=== PATIENT | male | born 1960 | race Caucasian/White ===

== ENCOUNTER 2018-03-02 18:55 | Emergency (ER) | payer MEDICARE, OTHER ==
[2018-03-02 18:56] VITALS: BMI 44.6
[2018-03-02 19:10] VITALS: TEMP 98.6; O2SAT 96
--- NOTE | 2018-03-02 19:33 | C.PDOC ---
History Of Present Illness 57 year old male with PMHx of HTN and HLD presents to the ED complaining of cough, subjective dyspnea and fever for the last few days. Associated symptoms include rhinorrhea and sorethroat. He denies any headache or chest pain. He de nies any recent sick contacts. Time Seen by Provider: 03/02/18 19:04 Chief Complaint (Nursing): Shortness Of Breath History Per: Patient History/Exam Limitations: no limitations Onset/Duration Of Symptoms: Days Current Symptoms Are (Timing): Still Present Associated Symptoms: Fever, Other (Rhinorrhea, cough, sore throat ) Past Medical History Reviewed: Historical Data, Nursing Documentation, Vital Signs Vital Signs: Last Vital Signs Temp 98.6 F 03/02/18 19:00 Pulse 97 H 03/02/18 19:00 Resp 14 03/02/18 19:22 BP 131/86 03/02/18 19:00 Pulse Ox 96 03/02/18 19:00 - Medical History PMH: Arthritis, Asthma, CAD, Depression, HTN, Hypercholesterolemia, Peripheral Edema, Sleep Apnea Denies: Dementia, Chronic Kidney Disease Surgical History: Coronary Stent (2012 x2) Denies: Pacemaker - [facility] Procedures CORONAR ARTERIOGR-2 CATH (04/16/14) DRESSING TECHNIQUES TREATMENT USING ASSIST EQUIPMENT (07/06/16) EXERCISE TRMT MUSCULOSK LOW BACK/LE W AEROBIC EQUIP (07/06/16) GAIT TRAINING/AMBULAT TREATMENT USING ASSIST EQUIPMENT (07/06/16) GROOMING/PERSONAL HYGIENE TREATMENT USING ASSIST EQUIPMENT (07/06/16) INJECT/INFUSE PLATELET INHIBITOR (12/27/12) INSERTION OF TWO VASCULAR STENTS (12/27/12) INSRT OF DRUG-ELUTING CORON ARTERY STENTS(S) (12/27/12) LEFT HEART CARDIAC CATH (04/16/14) LT HEART ANGIOCARDIOGRAM (04/16/14) OCCUPATIONAL THERAPY (12/30/12) OTH & OPEN REPAIR DIRECT INGUINAL HERNIA W GRAFT OR PROSTH (10/24/13) PERCUTANEOUS TRANSLUMINAL CORONARY ANGIOPLASTY [PTCA] (12/27/12) PHYSICAL THERAPY NEC (12/30/12) PROCEDURE ON SINGLE VESSEL (12/27/12) TRANSFER TRAINING TREATMENT (07/06/16) Family History: States: No Known Family Hx - Social History Hx Tobacco Use: No Hx Alcohol Use: No Hx Substance Use: No - Immunization History Hx Tetanus Toxoid Vaccination: No Hx Influenza Vaccination: No Hx Pneumococcal Vaccination: No Review Of Systems Constitutional: Positive for: Fever (subjective) ENT: Positive for: Nose Discharge, Throat Pain Cardiovascular: Negative for: Chest Pain Respiratory: Positive for: Cough, Other (subjective dyspnea) Neurological: Negative for: Headache Physical Exam - Physical Exam Appears: Non-toxic, No Acute Distress Skin: Warm, Dry Head: Normacephalic Eye(s): bilateral: Normal Inspection Throat: Erythema Neck: Normal ROM Chest: Symmetrical Cardiovascular: Rhythm Regular Respiratory: Normal Breath Sounds, No Rales, No Rhonchi, No Wheezing Gastrointestinal/Abdominal: Soft, No Tenderness Extremity: Normal ROM Neurological/Psych: Oriented x3, Normal Speech Gait: Steady ED Course And Treatment - Laboratory Results Result Diagrams: 03/02/18 19:36 03/02/18 19:36 ECG: Interpreted By Me, Viewed By Me ECG Rhythm: Sinus Rhythm ECG Interpretation: No Changes From Prior Interpretation Of ECG: Specific ST changes in lateral lead Rate From EC O2 Sat by Pulse Oximetry: 96 (RA) Pulse Ox Interpretation: Normal - Radiology CXR: Interpreted by Me, Viewed By Me CXR Interpretation: Yes: No Acute Disease Medical Decision Making Medical Decision Making: viral disase vs pna Orders: - EKG - Labwork - Bloodwork - CXR pt reassesed o2 sat 99, in nad. cxr neg as read by me. labs neg. stable for dc. Disposition - Disposition Disposition: HOME/ ROUTINE Disposition Time: 21:00 Condition: STABLE Additional Instructions: follow up with your doctor/clinic. return to er with worsening symptoms or concerns. Instructions: Shortness of Breath (Dyspnea), Viral Syndrome (DC) Forms: [employer] (Mauritian) - Clinical Impression Clinical Impression: Dyspnea, Viral syndrome - Scribe Statement The provider has reviewed the documentation as recorded by the Scribe Elizabeth Waterman All medical record entries made by the Scribe were at my direction and personally dictated by me. I have reviewed the chart and agree that the record accurately reflects my personal performance of the history, physical exam, medical decision making, and the department course for this patient. I have also personally directed, reviewed, and agree with the discharge instructions and disposition.
[2018-03-02 19:42] LABS: BASO # 0.1 K/uL (0.0-0.2); BASO % 0.7 % (0.0-2.0); EOS # 0.3 K/uL (0.0-0.7); EOS % 2.9 % (0.0-4.0); HEMOGLOBIN 12.9 g/dL (12.0-18.0); LYMPH # 1.6 K/uL (1.0-4.3); LYMPH % 18.6 % (20.0-40.0); MEAN CELL VOLUME 86.3 fL (80.0-94.0); MEAN CORPUSCULAR HEMOGLOBIN 29.4 pg (27.0-31.0); MEAN CORPUSCULAR HGB CONC 34.1 g/dL (33.0-37.0); MEAN PLATELET VOLUME 8.6 fL (7.2-11.7); MONO # 0.7 K/uL (0.0-0.8); MONO % 8.4 % (0.0-10.0); NEUT # 6.1 K/uL (1.8-7.0); NEUT % 69.4 % (50.0-75.0); NRBC % 0.1 % (0.0-2.0); RBC 4.4 Mil/uL (4.40-5.90); RED CELL DISTRIBUTION WIDTH 13.3 % (11.5-14.5); WHITE BLOOD COUNT 8.8 K/uL (4.8-10.8)
[2018-03-02 19:52] LABS: INR 1.1
[2018-03-02 20:03] LABS: ALB/GLOB RATIO 1.2 (1.0-2.1); ALBUMIN 4.1 g/dL (3.5-5.0); ALT/SGPT 45 U/L (21-72); AST/SGOT 38 U/L (17-59); BLOOD UREA NITROGEN 19 mg/dL (9-20); CALCIUM 9.2 mg/dl (8.6-10.4); GFR NON-AFRICAN AMERICAN > 60
[2018-03-02 20:18] LABS: B-TYPE NATRIURETIC PEPTIDE < 11.1 pg/mL (0-900)
[2018-03-02 20:56] LABS: INFLUENZA A B NEGATIVE FOR FLU A/B (NEGATIVE)
[2018-03-02 21:13] VITALS: BP 113/89; PULSE 98; RESP 16
--- NOTE | 2018-03-03 08:49 | RAD ---
Date of service: 03/02/2018 PROCEDURE: CHEST RADIOGRAPH, 1 VIEW HISTORY: chest pain COMPARISON: Comparison chest 04/12/2017. FINDINGS: LUNGS: Clear. PLEURA: No pneumothorax or pleural fluid seen. CARDIOVASCULAR: Normal. OSSEOUS STRUCTURES: No significant abnormalities. VISUALIZED UPPER ABDOMEN: Normal. OTHER FINDINGS: None. IMPRESSION: No active disease.
--- NOTE | 2018-03-04 11:49 | CARD ---
APPROVED REPORT Date of service: 03/02/2018 EKG Measurement Heart [id number] <Conclusion> Sinus rhythm with occasional premature ventricular complexes T wave abnormality, consider inferolateral ischemia Abnormal ECG
== END 2018-03-02 21:12 | disposition home or self-care (01) ==
LOC: C.ER 18:55
DX: R06.00 Dyspnea, unspecified (principal); B34.9 Viral infection, unspecified; I25.10 Atherosclerotic heart disease of native coronary artery without angina pectoris; J45.909 Unspecified asthma, uncomplicated; I10 Essential (primary) hypertension; E78.00 Pure hypercholesterolemia, unspecified; Z95.5 Presence of coronary angioplasty implant and graft

== ENCOUNTER 2018-03-21 19:14 | Inpatient (IN) | payer MEDICARE, OTHER ==
[2018-03-21 19:14] VITALS: BMI 44.6
--- NOTE | 2018-03-21 19:54 | C.PDOC ---
History Of Present Illness 57 year old male presents to the ED c/o SOB, wheezing and productive cough with yellow sputum that has been worsening for the past 2 weeks. However patient reports symptoms worsened tonight. Patient denies fever, chills, CP, palpitat ions, rash, recent travel, sick contacts. Time Seen by Provider: 03/21/18 19:39 Chief Complaint (Nursing): Respiratory Distress History Per: Patient History/Exam Limitations: no limitations Onset/Duration Of Symptoms: Days Current Symptoms Are (Timing): Still Present Initiating Event: Upper Respiratory Illness Exacerbating Factor(s): Coughing Current Respiratory Medications: See Home Med List Severity: Moderate Pain Scale Rating Of: 4 Associated Symptoms: Productive Cough, Ankle/Leg Swelling Reports Recently: Seen In ED, Treated By A Physician, Hospitalized Recent travel outside of the [place]: No Additional History Per: Patient Past Medical History Reviewed: Historical Data, Nursing Documentation, Vital Signs Vital Signs: Last Vital Signs Temp 99.1 F 03/21/18 19:26 Pulse 102 H 03/21/18 19:26 Resp 22 03/21/18 19:26 BP 136/89 03/21/18 19:26 Pulse Ox 97 03/21/18 19:26 - Medical History PMH: Arthritis, Asthma, CAD, Depression, HTN, Hypercholesterolemia, Peripheral Edema, Sleep Apnea Denies: Dementia, Chronic Kidney Disease Surgical History: Coronary Stent (2012 x2) Denies: Pacemaker - [facility] Procedures CORONAR ARTERIOGR-2 CATH (04/16/14) DRESSING TECHNIQUES TREATMENT USING ASSIST EQUIPMENT (07/06/16) EXERCISE TRMT MUSCULOSK LOW BACK/LE W AEROBIC EQUIP (07/06/16) GAIT TRAINING/AMBULAT TREATMENT USING ASSIST EQUIPMENT (07/06/16) GROOMING/PERSONAL HYGIENE TREATMENT USING ASSIST EQUIPMENT (07/06/16) INJECT/INFUSE PLATELET INHIBITOR (12/27/12) INSERTION OF TWO VASCULAR STENTS (12/27/12) INSRT OF DRUG-ELUTING CORON ARTERY STENTS(S) (12/27/12) LEFT HEART CARDIAC CATH (04/16/14) LT HEART ANGIOCARDIOGRAM (04/16/14) OCCUPATIONAL THERAPY (12/30/12) OTH & OPEN REPAIR DIRECT INGUINAL HERNIA W GRAFT OR PROSTH (10/24/13) PERCUTANEOUS TRANSLUMINAL CORONARY ANGIOPLASTY [PTCA] (12/27/12) PHYSICAL THERAPY NEC (12/30/12) PROCEDURE ON SINGLE VESSEL (12/27/12) TRANSFER TRAINING TREATMENT (07/06/16) Family History: States: Unknown Family Hx - Social History Hx Tobacco Use: No Hx Alcohol Use: No Hx Substance Use: No - Immunization History Hx Tetanus Toxoid Vaccination: No Hx Influenza Vaccination: No Hx Pneumococcal Vaccination: No Review Of Systems Constitutional: Negative for: Fever, Chills Eyes: Positive for: Other (legally blind) ENT: Negative for: Nose Discharge, Nose Congestion, Throat Pain Cardiovascular: Negative for: Chest Pain, Palpitations Respiratory: Positive for: Cough, Shortness of Breath, Sputum Gastrointestinal: Negative for: Nausea, Vomiting Genitourinary: Negative for: Dysuria Musculoskeletal: Negative for: Back Pain Skin: Negative for: Rash Neurological: Negative for: Confusion Psych: Negative for: Anxiety Physical Exam - Physical Exam Appears: Non-toxic, No Acute Distress Skin: Warm, Dry Head: Normacephalic Eye(s): bilateral: Other (blind in right eye, decreased vision on left eye) Oral Mucosa: Moist Neck: Supple Chest: Symmetrical Cardiovascular: Rhythm Regular Respiratory: Decreased Breath Sounds, Rales (at the bases), No Rhonchi, Wheezing (diffuse) Gastrointestinal/Abdominal: Soft, No Tenderness, No Guarding, No Rebound Back: Normal Inspection Extremity: Pedal Edema (bilateral pitting) Extremity: Bilateral: Atraumatic, Normal Color And Temperature, Normal ROM Neurological/Psych: Oriented x3, Normal Speech, Normal Cognition Gait: Unsteady ED Course And Treatment - Laboratory Results Result Diagrams: 03/21/18 20:25 03/21/18 20:25 ECG: Interpreted By Me, Viewed By Me ECG Rhythm: Sinus Rhythm, Nonspecific Changes O2 Sat by Pulse Oximetry: 97 (ON RA) Pulse Ox Interpretation: Normal Progress Note: Plan: - ABG. - EKG. - Labs. - CXR. - Duoneb. - Lasix 20 mg IVP. - Solumderol 125 mg IVP. - Influenza A B. - UA Disposition Discussed With : Giovani Brink Comment: accepted the pt on his service and took over the care at 10:59PM Doctor Will See Patient In The: Hospital Counseled Patient/Family Regarding: Studies Performed, Diagnosis - Disposition Disposition: HOSPITALIZED Disposition Time: 19:54 Condition: FAIR Forms: [employer] (Dominican) - POA Present On Arrival: Poor Glycemic Control - Clinical Impression Clinical Impression: Exacerbation of asthma, Unstable gait, Dyspnea - Scribe Statement The provider has reviewed the documentation as recorded by the Scribe Jamaal Hutson All medical record entries made by the Scribe were at my direction and personally dictated by me. I have reviewed the chart and agree that the record accurately reflects my personal performance of the history, physical exam, medical decision making, and the department course for this patient. I have also personally directed, reviewed, and agree with the discharge instructions and disposition. Decision To Admit - Pt Status Changed To: Hospital Disposition Of: Observation - . Bed Request Type: Regular Admitting Physician: Giovani Brink Patient Diagnosis: Exacerbation of asthma, Unstable gait, Dyspnea
[2018-03-21] MEDS: Albuterol-Ipratrop 3 mg / 0.5 (3 ml) UD IH SCH ×3 (20:00→20:30)
[2018-03-21] MEDS ORDERED: Albuterol-Ipratrop 3 mg / 0.5 (3 ml) UD ONE (20:11)
[2018-03-21 20:32] LABS: BASO % 0.4 % (0.0-2.0); EOS # 0.2 K/uL (0.0-0.7); HEMOGLOBIN 12.3 g/dL (12.0-18.0); LYMPH # 1.7 K/uL (1.0-4.3); MEAN CELL VOLUME 85.9 fL (80.0-94.0); MEAN CORPUSCULAR HEMOGLOBIN 29.2 pg (27.0-31.0); MEAN PLATELET VOLUME 8.5 fL (7.2-11.7); MONO # 0.6 K/uL (0.0-0.8); MONO % 7.4 % (0.0-10.0); NEUT # 5.2 K/uL (1.8-7.0); NEUT % 68.2 % (50.0-75.0); NRBC % 0.2 % (0.0-2.0); RBC 4.2 Mil/uL (4.40-5.90); WHITE BLOOD COUNT 7.6 K/uL (4.8-10.8)
[2018-03-21 20:48] LABS: INR 1.2; PROTHROMBIN TIME 13.2 SECONDS (9.7-12.2)
[2018-03-21 21:02] LABS: ALB/GLOB RATIO 1.1 (1.0-2.1); ALBUMIN 3.8 g/dL (3.5-5.0); ALT/SGPT 41 U/L (21-72); AST/SGOT 33 U/L (17-59); BLOOD UREA NITROGEN 18 mg/dL (9-20); CALCIUM 9.1 mg/dl (8.6-10.4); GFR NON-AFRICAN AMERICAN > 60
[2018-03-21 21:04] LABS: ABG ALLEN TEST YES; ARTERIAL BLOOD GAS HCO3 27.3 mmol/L (21-28); ARTERIAL BLOOD GAS O2 SAT 96.5 % (95-98); ARTERIAL BLOOD GAS PCO2 38 mm/Hg (35-45); ARTERIAL BLOOD GAS PH 7.46 (7.35-7.45); ARTERIAL BLOOD GAS PO2 68 mm/Hg (80-100); ARTERIAL BLOOD GAS TCO2 28.2 mmol/L (22-28)
[2018-03-21 21:14] LABS: B-TYPE NATRIURETIC PEPTIDE 13.2 pg/mL (0-900)
[2018-03-21 22:02] LABS: URINE BILIRUBIN NEGATIVE (NEGATIVE); URINE BLOOD NEGATIVE (NEGATIVE); URINE CLARITY Clear (Clear); URINE COLOR Colorless (YELLOW); URINE GLUCOSE (UA) NORMAL (Normal); URINE LEUKOCYTE ESTERASE NEG Leu/uL (Negative); URINE PROTEIN NEGATIVE (NEGATIVE); URINE UROBILINOGEN NORMAL mg/dL (0.2-1.0)
[2018-03-22] MEDS ORDERED: Albuterol-Ipratrop 3 mg / 0.5 (3 ml) UD ONE (03:33)
[2018-03-22] MEDS: Albuterol-Ipratrop 3 mg / 0.5 (3 ml) UD INH SCH ×4 (04:00→16:26)
--- NOTE | 2018-03-22 09:44 | RAD ---
Date of service: 03/21/2018 PROCEDURE: CHEST RADIOGRAPH, 1 VIEW HISTORY: Shortness of breath COMPARISON: None available. FINDINGS: LUNGS: Mild venous congestion. Right hilar prominence. PLEURA: No pneumothorax or pleural fluid seen. CARDIOVASCULAR: Mild cardiomegaly. OSSEOUS STRUCTURES: No significant abnormalities. VISUALIZED UPPER ABDOMEN: Normal. OTHER FINDINGS: None. IMPRESSION: Mild venous congestion. Right hilar prominence.
[2018-03-22] MEDS: Enoxaparin 40 mg Syringe SC SCH (09:59)
[2018-03-22 10:03] VITALS: RESP 20
[2018-03-22 11:21] LABS: HEMOGLOBIN 12.8 g/dL (12.0-18.0); LYMPH # 0.5 K/uL (1.0-4.3); LYMPH % 5.3 % (20.0-40.0); MEAN CORPUSCULAR HEMOGLOBIN 29.8 pg (27.0-31.0); MEAN CORPUSCULAR HGB CONC 34.7 g/dL (33.0-37.0); MEAN PLATELET VOLUME 8.9 fL (7.2-11.7); MONO # 0.1 K/uL (0.0-0.8); MONO % 1.6 % (0.0-10.0); NEUT # 8.5 K/uL (1.8-7.0); NEUT % 93.1 % (50.0-75.0); NRBC % 0.1 % (0.0-2.0); PLATELET COUNT 208 K/uL (130-400); RBC 4.31 Mil/uL (4.40-5.90); RED CELL DISTRIBUTION WIDTH 13.3 % (11.5-14.5); WHITE BLOOD COUNT 9.1 K/uL (4.8-10.8)
[2018-03-22 11:30] LABS: URIC ACID 6.3 mg/dL (3.5-8.5)
[2018-03-22 12:11] LABS: LYMPHOCYTE 1 % (20-40); MONOCYTE 4 % (0-10); NEUTROPHIL 95 % (50-75); TOTAL CELLS COUNTED 100
[2018-03-22 12:12] LABS: PLATELET ESTIMATE NORMAL (NORMAL)
[2018-03-22] MEDS: Azithromycin 500 MG in Sodium Chloride 0.9% 250 ML IVPB SCH (19:01)
--- NOTE | 2018-03-22 20:23 | CARD ---
APPROVED REPORT Date of service: 03/21/2018 EKG Measurement Heart [id number] <Conclusion> Sinus tachycardia Otherwise normal ECG
--- NOTE | 2018-03-22 22:05 | CP.PCM.HP ---
History of Present Illness - History of Present Illness History of Present Illness: 57-year-old legally blind male complaining of sore throat, wheezing and chest discomfor for the past 3 days.. Patient's symptoms intensified today and he had recurrent palpitations. patient comes to the ER for evaluation and was a dvised admission. Present on Admission - Present on Admission Any Indicators Present on Admission: No History of DVT/PE: No History of Uncontrolled Diabetes: No Urinary Catheter: No Decubitus Ulcer Present: No History Surgical Site Infection Following: None Review of Systems - Constitutional Constitutional: Fatigue, Malaise - EENT Eyes: Blind Spots Nose/Mouth/Throat: Sore Throat - Cardiovascular Cardiovascular: Palpitations - Respiratory Respiratory: Wheezing - Integumentary Integumentary: Dry Skin - Neurological Neurological: Numbness, Headaches - Endocrine Endocrine: Fatigue Past Patient History - Infectious Disease Hx of Infectious Diseases: None - Tetanus Immunizations Tetanus Immunization: Unknown, >10 years Ago - Past Medical History & Family History Past Medical History?: Yes - Past Social History Smoking Status: Never Smoked Chewing Tobacco Use: No Cigar Use: No Alcohol: None Drugs: Denies Home Situation {Lives}: Alone - CARDIAC Hx Cardiac Disorders: Yes Hx Cardia Arrhythmia: Yes Hx Circulatory Problems: Yes Hx Hypercholesterolemia: Yes Hx Hypertension: Yes Hx Pacemaker: No Hx Peripheral Edema: Yes - PULMONARY Hx Asthma: Yes Hx Sleep Apnea: Yes - NEUROLOGICAL Hx Dementia: No Hx Dizziness: Yes Hx Migraine: Yes - HEENT Hx HEENT Problems: Yes Hx Blind: Yes (legally blind) Hx Cataracts: Yes - RENAL Hx Chronic Kidney Disease: No - ENDOCRINE/METABOLIC Hx Endocrine Disorders: No - HEMATOLOGICAL/ONCOLOGICAL Hx Blood Disorders: No Hx Blood Transfusions: No Hx Blood Transfusion Reaction: No - INTEGUMENTARY Hx Dermatological Problems: No - MUSCULOSKELETAL/RHEUMATOLOGICAL Hx Arthritis: Yes - GASTROINTESTINAL Hx Gastrointestinal Disorders: No Hx Gastroesophageal Reflux: Yes - GENITOURINARY/GYNECOLOGICAL Hx Genitourinary Disorders: No - PSYCHIATRIC Hx Depression: Yes Hx Substance Use: No - SURGICAL HISTORY Hx Coronary Stent: Yes (2012 x2) - ANESTHESIA Hx Anesthesia: Yes Hx Anesthesia Reactions: No Hx Malignant Hyperthermia: No Meds Allergies/Adverse Reactions: Allergies Allergy/AdvReac Type Severity Reaction Status Date / Time No Known Allergies Allergy Verified 03/21/18 19:29 Physical Exam - Head Exam Head Exam: ATRAUMATIC - ENT Exam ENT Exam: Mucous Membranes Dry - Neck Exam Neck exam: Positive for: Normal Inspection - Respiratory Exam Respiratory Exam: Wheezes - Cardiovascular Exam Cardiovascular Exam: Tachycardia - GI/Abdominal Exam GI & Abdominal Exam: Hyperactive Bowel Sounds - Rectal Exam Rectal Exam: Deferred - Exam Exam: NORMAL INSPECTION - Extremities Exam Extremities exam: Positive for: joint swelling - Back Exam Back exam: NORMAL INSPECTION - Neurological Exam Neurological exam: Oriented x3 - Psychiatric Exam Psychiatric exam: Depressed Results - Vital Signs Recent Vital Signs: Last Vital Signs Temp 97.4 F L 03/22/18 16:00 Pulse 117 H 03/22/18 16:00 Resp 20 03/22/18 16:00 BP 110/61 03/22/18 17:23 Pulse Ox 96 03/22/18 16:00 - Labs Result Diagrams: 03/22/18 11:11 03/22/18 11:11 Labs: Laboratory Results - last 24 hr 03/21/18 03/22/18 03/22/18 21:50 11:11 11:11 WBC 9.1 RBC 4.31 L Hgb 12.8 Hct 37.0 MCV 86.0 MCH 29.8 MCHC 34.7 RDW 13.3 Plt Count 208 MPV 8.9 Neut % (Auto) 93.1 H Lymph % (Auto) 5.3 L [place] % (Auto) 1.6 Eos % (Auto) 0.0 Baso % (Auto) 0.0 Neut # (Auto) 8.5 H Lymph # (Auto) 0.5 L [place] # (Auto) 0.1 Eos # (Auto) 0.0 Baso # (Auto) 0.0 Neutrophils % (Manual) 95 H Lymphocytes % (Manual) 1 L Monocytes % (Manual) 4 Platelet Estimate Normal RBC Morphology Normal Sodium 139 Potassium 4.7 Chloride 103 Carbon Dioxide 22 BUN 18 Uric Acid 6.3 Urine Color Colorless Urine Clarity Clear Urine pH 6.0 Ur Specific [place] 1.004 Urine Protein Negative Urine Glucose (UA) Normal Urine Ketones Negative Urine Blood Negative Urine Nitrate Negative Urine Bilirubin Negative Urine Urobilinogen Normal Ur Leukocyte Esterase Neg Urine WBC (Auto) < 1 Urine RBC (Auto) < 1 Assessment & Plan (1) Cardiac arrhythmia Status: Acute (2) Exacerbation of asthma Status: Acute (3) Degenerative joint disease Status: Acute (4) Viral syndrome Status: Acute
--- NOTE | 2018-03-22 22:17 | CON ---
DATE: 03/22/2018 HISTORY OF PRESENT ILLNESS: This is a 57-year-old male, a nonsmoker with a history of hypertension, coronary artery disease with placement of two stents in 2012, history of asthma, sleep apnea, depression, hypercholesterolemia, and arthritis, now admitted with increasing dyspnea especially on exertion, cough with scanty mucoid to yellow sputum with no fever, but occasional chills. No sweating. He sleeps poorly and feels drowsy during the day. There has been no vomiting or hemoptysis. No seizures, syncope or falls. SOCIAL HISTORY: He is a nonsmoker, does not drink alcohol. ALLERGIES: HE IS NOT ALLERGIC TO ANY MEDICATIONS. PAST MEDICAL HISTORY: As noted above with coronary artery disease, stent placement, hypertension, CHF, arthritis, and sleep apnea. REVIEW OF SYSTEMS: Systemic review revealed: NEUROLOGIC: No seizures, no falls. RESPIRATORY: Shortness of breath, dyspnea. CARDIOVASCULAR: Coronary artery disease. GASTROINTESTINAL: No vomiting. No GI disturbance. GENITOURINARY: No urinary complaints. MUSCULOSKELETAL: He has no arthritic pains. PHYSICAL EXAMINATION: GENERAL: He is alert, oriented, and obese. VITAL SIGNS: Afebrile with a blood pressure of 130/72, pulse 87, hemoglobin-oxygen saturation of 95%. HEENT: Appears unremarkable. NECK: No thyromegaly. No lymphadenopathy. HEART: Regular with no gallop rhythm. LUNGS: Diminished breath sounds over the lung christensen with rhonchi and wheeze present. ABDOMEN: Soft and protuberant. EXTREMITIES: There is bilateral leg edema with pitting. Deep tendon reflexes are little sluggish. Motor power fair. LABORATORY DATA: His white count is 9100, hemoglobin 12.8, platelet count 2800. His arterial blood gas on FiO2 of 30% shows pH of 7.46, pCO2 of 38, and pO2 of 68 with bicarb of 27, hemoglobin oxygen saturation of 98%. Sodium 143, potassium 4.4, chloride 104, BUN 18, creatinine 1.1. Troponin less than 0.012. Urinalysis is unremarkable. His chest x-ray shows elevation of right hemidiaphragm with possible atelectasis with basal plate like atelectasis over the bases, otherwise lung christensen are clear, and the heart is enlarged with bilateral basal rales. IMPRESSION: Respiratory insufficiency, acute exacerbation of chronic obstructive pulmonary disease, hypertension and coronary artery disease with congestive heart failure, bronchitis, arthritis, hypercholesterolemia, sleep apnea. PLAN: To continue with the current medications including bronchodilators, vasodilators, oxygen, and Plavix. Since the patient is on Plavix, he is not given Lovenox. He has leg swelling, so leg compression is not comfortable or effective. Plan as indicated with current therapy, and we will follow with his chest x-ray and further tests. We will give nightly BiPAP therapy as indicated. Jerry Arciniega MD
[2018-03-23] MEDS: Enoxaparin 40 mg Syringe SC SCH (10:06)
[2018-03-23] MEDS: guaiFENesin 100 mg/5 ml Syrup UD PO SCH ×2 (15:16→21:26)
[2018-03-23] MEDS: Albuterol 0.083% Inhal Sol (2.5 mg/3 mL) UD INH SCH ×2 (16:05→19:38)
[2018-03-23] MEDS: Azithromycin 500 MG in Sodium Chloride 0.9% 250 ML IVPB SCH (19:51)
[2018-03-23] MEDS: MethylPREDNISolone 40 mg Vial IV SCH (21:26)
--- NOTE | 2018-03-23 22:28 | CP.PCM.PN ---
Subjective - Date & Time of Evaluation Date of Evaluation: 03/23/18 Time of Evaluation: 19:20 - Subjective Subjective: patient still has severe cough. chest congestion persists. He has had less palpitations today. Will continue present medications and supportive measures. Objective - Vital Signs/Intake and Output Vital Signs (last 24 hours): Temp Pulse Resp BP Pulse Ox 98.1 F 95 H 20 106/75 99 03/23/18 16:00 03/23/18 16:00 03/23/18 16:00 03/23/18 17:31 03/23/18 16:00 - Medications Medications: Current Medications Albuterol Sulfate (Albuterol 0.083% Inhal [place] (2.5 Mg/3 Ml) Ud) 2.5 mg INH RQ4 [facility] Last Admin: 03/23/18 19:38 Dose: 2.5 mg Aspirin (Ecotrin) 81 mg PO DAILY [facility] Last Admin: 03/23/18 10:06 Dose: 81 mg Clopidogrel Bisulfate (Plavix) 75 mg PO DAILY [facility] Last Admin: 03/23/18 10:10 Dose: 75 mg Enalapril Maleate (Vasotec) 20 mg PO DAILY [facility] Last Admin: 03/23/18 10:06 Dose: 20 mg Enoxaparin Sodium (Lovenox) 40 mg SC DAILY [facility] Last Admin: 03/23/18 10:06 Dose: 40 mg Furosemide (Lasix) 40 mg PO DAILY [facility] Guaifenesin (Robitussin) 100 mg PO Q12 [facility] Last Admin: 03/23/18 21:26 Dose: 100 mg Azithromycin 500 mg/ Sodium (Chloride) 250 mls @ 167 mls/hr IVPB Q24H [facility]; Protocol Stop: 03/27/18 19:01 Last Admin: 03/23/18 19:51 Dose: 167 mls/hr Meclizine HCl (Antivert) 25 mg PO BID [facility] Last Admin: 03/23/18 17:31 Dose: 25 mg Methylprednisolone (Solu-Medrol) 20 mg IV Q12 [facility] Last Admin: 03/23/18 21:26 Dose: 20 mg Metoprolol Tartrate (Lopressor) 25 mg PO BID [facility] Last Admin: 03/23/18 17:31 Dose: 25 mg Montelukast Sodium (Singulair) 10 mg PO HS [facility] Last Admin: 03/23/18 21:26 Dose: 10 mg Rosuvastatin Calcium (Crestor) 20 mg PO HS [facility] Last Admin: 03/23/18 21:26 Dose: 20 mg - Labs Labs: 03/22/18 11:11 03/22/18 11:11 PT 13.2 SECONDS (9.7-12.2) H 03/21/18 20:25 INR 1.2 03/21/18 20:25 APTT 31 SECONDS (21-34) 03/21/18 20:25 - Constitutional Appears: Chronically Ill - Head Exam Head Exam: NORMOCEPHALIC - Eye Exam Eye Exam: Normal appearance Pupil Exam: NORMAL ACCOMODATION - ENT Exam ENT Exam: Mucous Membranes Dry - Neck Exam Neck Exam: Normal Inspection - Respiratory Exam Respiratory Exam: Wheezes - Cardiovascular Exam Cardiovascular Exam: REGULAR RHYTHM - GI/Abdominal Exam GI & Abdominal Exam: Normal Bowel Sounds - Rectal Exam Rectal Exam: Deferred - Exam Exam: NORMAL INSPECTION - Extremities Exam Extremities Exam: Joint Swelling, Pedal Edema - Back Exam Back Exam: NORMAL INSPECTION - Neurological Exam Neurological Exam: Oriented x3 - Psychiatric Exam Psychiatric exam: Depressed - Skin Skin Exam: Dry Assessment and Plan (1) Cardiac arrhythmia Status: Acute (2) Exacerbation of asthma Status: Acute (3) Degenerative joint disease Status: Acute (4) Viral syndrome Status: Acute
[2018-03-24] MEDS: Albuterol 0.083% Inhal Sol (2.5 mg/3 mL) UD INH SCH ×6 (00:52→19:32)
--- NOTE | 2018-03-24 07:24 | PN ---
DATE: 03/23/2018 SUBJECTIVE: The patient is alert and oriented. He is afebrile. He is in bed. PHYSICAL EXAMINATION: VITAL SIGNS: Blood pressure is 110/70, pulse 83, respiration 20. Hemoglobin oxygen saturation is 96%. HEART: Regular. No gallop rhythm. LUNGS: Diminished breath sounds at the lung bases. Rhonchi decreased. ABDOMEN: Soft. EXTREMITIES: Leg edema is less severe. He still cough. LABORATORY DATA: His white count is 9100, hemoglobin 12.8, platelet count 208,000. Sodium 139, potassium 4.7, chloride 103, carbon dioxide 22, BUN 18. IMPRESSION: Respiratory insufficiency, bronchitis, hypertensive cardiovascular disease with pulmonary vascular congestion, sleep apnea, obesity, depression, and raised blood sugar. PLAN: To continue with the current medications including bronchodilators, cough medicine, oxygen, BiPAP therapy and antibiotics. Jerry Arciniega MD
[2018-03-24] MEDS: guaiFENesin 100 mg/5 ml Syrup UD PO SCH ×2 (09:52→21:26)
[2018-03-24] MEDS: Enoxaparin 40 mg Syringe SC SCH (09:58)
[2018-03-24] MEDS: MethylPREDNISolone 40 mg Vial IV SCH ×2 (09:58→21:26)
[2018-03-24] MEDS: Azithromycin 500 MG in Sodium Chloride 0.9% 250 ML IVPB SCH (19:27)
--- NOTE | 2018-03-24 22:25 | CP.PCM.PN ---
Subjective - Date & Time of Evaluation Date of Evaluation: 03/24/18 Time of Evaluation: 19:05 - Subjective Subjective: patient is still coughing. patient claims to have shortness of breath if he lays flat in the bed. He is using 2 pillows in order to stay elevated. Chest x-ray ordere for the morning. Objective - Vital Signs/Intake and Output Vital Signs (last 24 hours): Temp Pulse Resp BP Pulse Ox 98 F 89 20 105/70 96 03/24/18 16:00 03/24/18 16:00 03/24/18 16:00 03/24/18 17:22 03/24/18 16:00 - Medications Medications: Current Medications Albuterol Sulfate (Albuterol 0.083% Inhal Patria (2.5 Mg/3 Ml) Ud) 2.5 mg INH RQ4 [facility] Last Admin: 03/24/18 19:32 Dose: 2.5 mg Aspirin (Ecotrin) 81 mg PO DAILY [facility] Last Admin: 03/24/18 09:57 Dose: 81 mg Clopidogrel Bisulfate (Plavix) 75 mg PO DAILY [facility] Last Admin: 03/24/18 09:57 Dose: 75 mg Enalapril Maleate (Vasotec) 20 mg PO DAILY [facility] Last Admin: 03/24/18 09:57 Dose: 20 mg Enoxaparin Sodium (Lovenox) 40 mg SC DAILY [facility] Last Admin: 03/24/18 09:58 Dose: 40 mg Furosemide (Lasix) 40 mg PO DAILY [facility] Last Admin: 03/24/18 10:00 Dose: 40 mg Guaifenesin (Robitussin) 100 mg PO Q12 [facility] Last Admin: 03/24/18 21:26 Dose: 100 mg Azithromycin 500 mg/ Sodium (Chloride) 250 mls @ 167 mls/hr IVPB Q24H [facility]; Protocol Stop: 03/27/18 19:01 Last Admin: 03/24/18 19:27 Dose: 167 mls/hr Meclizine HCl (Antivert) 25 mg PO BID [facility] Last Admin: 03/24/18 17:22 Dose: 25 mg Methylprednisolone (Solu-Medrol) 20 mg IV Q12 [facility] Last Admin: 03/24/18 21:26 Dose: 20 mg Metoprolol Tartrate (Lopressor) 25 mg PO BID [facility] Last Admin: 10/18/18 17:22 Dose: 25 mg Montelukast Sodium (Singulair) 10 mg PO HS [facility] Last Admin: 03/24/18 21:26 Dose: 10 mg Rosuvastatin Calcium (Crestor) 20 mg PO HS [facility] Last Admin: 03/24/18 21:26 Dose: 20 mg - Labs Labs: 03/22/18 11:11 03/22/18 11:11 PT 13.2 SECONDS (9.7-12.2) H 03/21/18 20:25 INR 1.2 03/21/18 20:25 APTT 31 SECONDS (21-34) 03/21/18 20:25 - Constitutional Appears: Chronically Ill - Head Exam Head Exam: NORMOCEPHALIC - Eye Exam Eye Exam: Normal appearance Pupil Exam: NORMAL ACCOMODATION - ENT Exam ENT Exam: Mucous Membranes Dry - Neck Exam Neck Exam: Normal Inspection - Respiratory Exam Respiratory Exam: Decreased Breath Sounds - Cardiovascular Exam Cardiovascular Exam: REGULAR RHYTHM - GI/Abdominal Exam GI & Abdominal Exam: Normal Bowel Sounds - Rectal Exam Rectal Exam: Deferred - Exam Exam: NORMAL INSPECTION - Extremities Exam Extremities Exam: Joint Swelling - Back Exam Back Exam: NORMAL INSPECTION - Neurological Exam Neurological Exam: Oriented x3 - Psychiatric Exam Psychiatric exam: Depressed - Skin Skin Exam: Dry Assessment and Plan (1) Cardiac arrhythmia Status: Acute (2) Exacerbation of asthma Status: Acute (3) Degenerative joint disease Status: Acute (4) Viral syndrome Status: Acute
[2018-03-25] MEDS: Albuterol 0.083% Inhal Sol (2.5 mg/3 mL) UD INH SCH ×7 (00:18→23:57)
[2018-03-25] MEDS: MethylPREDNISolone 40 mg Vial IV SCH (09:27)
[2018-03-25] MEDS: guaiFENesin 100 mg/5 ml Syrup UD PO SCH (09:27)
[2018-03-25] MEDS: Enoxaparin 40 mg Syringe SC SCH (09:28)
--- NOTE | 2018-03-25 10:40 | PN ---
DATE: 03/24/2018 SUBJECTIVE: The patient is in bed, lethargic. PHYSICAL EXAMINATION: VITAL SIGNS: Afebrile. Blood pressure stable 132/82, pulse 62, respirations 20, hemoglobin-oxygen saturation of 96%. HEART: Regular. No gallop rhythm. LUNGS: Diminished breath sounds over the lung bases. Rhonchi decreased. ABDOMEN: Soft. EXTREMITIES: Legs, edema is decreasing. LABORATORY DATA: His white count is 5700, hemoglobin 11.4, platelet count 185,000. Sodium is 144, potassium 4.7, chloride 102, BUN 14, creatinine 0.7, glucose 112. IMPRESSION: Respiratory insufficiency, diabetes mellitus, hypertensive cardiovascular disease, congestive heart failure, exacerbation of chronic obstructive pulmonary disease and sepsis, sleep apnea, arthritis. PLAN: To continue with current management including bronchodilator, BiPAP therapy, oxygen and antibiotics as ordered by Infectious Disease. Jerry Arciniega MD
[2018-03-25 11:35] LABS: BASO % 0.1 % (0.0-2.0); EOS % 0.1 % (0.0-4.0); HEMOGLOBIN 13.3 g/dL (12.0-18.0); LYMPH # 1.4 K/uL (1.0-4.3); LYMPH % 10.7 % (20.0-40.0); MEAN CELL VOLUME 86.4 fL (80.0-94.0); MEAN CORPUSCULAR HEMOGLOBIN 28.9 pg (27.0-31.0); MEAN CORPUSCULAR HGB CONC 33.4 g/dL (33.0-37.0); MEAN PLATELET VOLUME 8.5 fL (7.2-11.7); MONO # 0.5 K/uL (0.0-0.8); MONO % 3.5 % (0.0-10.0); NEUT # 11.5 K/uL (1.8-7.0); NEUT % 85.6 % (50.0-75.0); RBC 4.6 Mil/uL (4.40-5.90); RED CELL DISTRIBUTION WIDTH 13.1 % (11.5-14.5); WHITE BLOOD COUNT 13.4 K/uL (4.8-10.8)
[2018-03-25 11:53] LABS: ALB/GLOB RATIO 1.1 (1.0-2.1); ALBUMIN 4.2 g/dL (3.5-5.0); ALT/SGPT 33 U/L (21-72); AST/SGOT 24 U/L (17-59); BLOOD UREA NITROGEN 25 mg/dL (9-20); CALCIUM 9.5 mg/dl (8.6-10.4); GFR NON-AFRICAN AMERICAN > 60
[2018-03-25] MEDS: guaiFENesin DM 200 mg-20 mg/10 ml UD PO SCH ×2 (14:55→21:54)
[2018-03-25] MEDS: Azithromycin 500 MG in Sodium Chloride 0.9% 250 ML IVPB SCH (18:02)
--- NOTE | 2018-03-25 19:33 | PN ---
DATE: 03/25/2018 SUBJECTIVE: The patient is alert and oriented, afebrile. PHYSICAL EXAMINATION: GENERAL: In no acute distress. VITAL SIGNS: His blood pressure is 130/94 and pulse 98. HEART: Regular. No gallop rhythm. LUNGS: Revealed diminished breath sounds in the lung bases, rhonchi scattered. ABDOMEN: Soft. EXTREMITIES: Legs, edema decreasing. LABORATORY DATA: His white count 13,400, hemoglobin 13.3, platelet 283,000. Serum sodium 141, potassium 4.7, BUN 25, and creatinine 0.9. IMPRESSION: Respiratory insufficiency, acute exacerbation of chronic obstructive pulmonary disease, sleep apnea, obesity, hypertensive congestive heart failure, and obesity-hypoventilation syndrome. PLAN: To continue with the current medications. The patient does not want to have BiPAP therapy tonight. He continues to be on bronchodilators, antitussives and vasodilators, and continue with the current measures. Jerry Arciniega MD
--- NOTE | 2018-03-25 22:34 | CP.PCM.PN ---
Subjective - Date & Time of Evaluation Date of Evaluation: 03/25/18 Time of Evaluation: 19:35 - Subjective Subjective: patient less congested today. He still has residual cough but denies any chest pain. lower extremities are still swollen. WBCs 13,600 and a BUN is 25. Continue antibiotic therapy. Objective - Vital Signs/Intake and Output Vital Signs (last 24 hours): Temp Pulse Resp BP Pulse Ox 98.0 F 90 20 135/80 98 03/25/18 15:00 03/25/18 15:00 03/25/18 15:00 03/25/18 18:03 03/25/18 15:00 Intake and Output: 03/25/18 03/26/18 18:59 06:59 Output Total 1200 Balance -1200 - Medications Medications: Current Medications Albuterol Sulfate (Albuterol 0.083% Inhal Patria (2.5 Mg/3 Ml) Ud) 2.5 mg INH RQ4 [facility] Last Admin: 03/25/18 20:22 Dose: 2.5 mg Aspirin (Ecotrin) 81 mg PO DAILY [facility] Last Admin: 03/25/18 09:27 Dose: 81 mg Clopidogrel Bisulfate (Plavix) 75 mg PO DAILY [facility] Last Admin: 03/25/18 09:26 Dose: 75 mg Enalapril Maleate (Vasotec) 20 mg PO DAILY [facility] Last Admin: 03/25/18 09:27 Dose: 20 mg Enoxaparin Sodium (Lovenox) 40 mg SC DAILY [facility] Last Admin: 03/25/18 09:28 Dose: 40 mg Furosemide (Lasix) 40 mg PO DAILY [facility] Last Admin: 03/25/18 10:23 Dose: 40 mg Guaifenesin/Dextromethorphan (Robitussin Dm) 10 ml PO Q8H [facility] Last Admin: 03/25/18 21:54 Dose: 10 ml Azithromycin 500 mg/ Sodium (Chloride) 250 mls @ 167 mls/hr IVPB Q24H [facility]; Protocol Stop: 03/27/18 19:01 Last Admin: 03/25/18 18:02 Dose: 167 mls/hr Meclizine HCl (Antivert) 25 mg PO BID [facility] Last Admin: 03/25/18 18:03 Dose: 25 mg Metoprolol Tartrate (Lopressor) 25 mg PO BID [facility] Last Admin: 03/25/18 18:03 Dose: 25 mg Montelukast Sodium (Singulair) 10 mg PO HS [facility] Last Admin: 03/25/18 21:54 Dose: 10 mg Prednisone (Prednisone Tab) 10 mg PO DAILY [facility] Rosuvastatin Calcium (Crestor) 20 mg PO HS [facility] Last Admin: 03/25/18 21:54 Dose: 20 mg - Labs Labs: 03/25/18 11:19 03/25/18 11:19 PT 13.2 SECONDS (9.7-12.2) H 03/21/18 20:25 INR 1.2 03/21/18 20:25 APTT 31 SECONDS (21-34) 03/21/18 20:25 - Constitutional Appears: Chronically Ill - Head Exam Head Exam: NORMOCEPHALIC - Eye Exam Eye Exam: Normal appearance Pupil Exam: NORMAL ACCOMODATION - ENT Exam ENT Exam: Mucous Membranes Dry - Neck Exam Neck Exam: Normal Inspection - Respiratory Exam Respiratory Exam: Decreased Breath Sounds - Cardiovascular Exam Cardiovascular Exam: REGULAR RHYTHM - GI/Abdominal Exam GI & Abdominal Exam: Normal Bowel Sounds - Rectal Exam Rectal Exam: Deferred - Exam Exam: NORMAL INSPECTION - Extremities Exam Extremities Exam: Pedal Edema - Back Exam Back Exam: NORMAL INSPECTION - Neurological Exam Neurological Exam: Oriented x3 - Psychiatric Exam Psychiatric exam: Flat Affect - Skin Skin Exam: Dry Assessment and Plan (1) Cardiac arrhythmia Status: Acute (2) Exacerbation of asthma Status: Acute (3) Degenerative joint disease Status: Acute (4) Viral syndrome Status: Acute
[2018-03-26] MEDS: Albuterol 0.083% Inhal Sol (2.5 mg/3 mL) UD INH SCH ×4 (03:15→16:16)
[2018-03-26] MEDS: guaiFENesin DM 200 mg-20 mg/10 ml UD PO SCH ×2 (05:22→13:29)
--- NOTE | 2018-03-26 06:43 | CARD ---
APPROVED REPORT Date of service: 03/22/2018 EKG Measurement Heart [id number] <Conclusion> Sinus tachycardia Otherwise normal ECG
[2018-03-26 07:51] LABS: BASO % 0.4 % (0.0-2.0); EOS # 0.1 K/uL (0.0-0.7); EOS % 0.8 % (0.0-4.0); HEMOGLOBIN 14.1 g/dL (12.0-18.0); LYMPH # 2.5 K/uL (1.0-4.3); MEAN CELL VOLUME 85.7 fL (80.0-94.0); MEAN CORPUSCULAR HEMOGLOBIN 28.7 pg (27.0-31.0); MEAN CORPUSCULAR HGB CONC 33.5 g/dL (33.0-37.0); MEAN PLATELET VOLUME 8.6 fL (7.2-11.7); MONO # 0.6 K/uL (0.0-0.8); MONO % 5.1 % (0.0-10.0); NEUT # 8.3 K/uL (1.8-7.0); NEUT % 71.7 % (50.0-75.0); RBC 4.91 Mil/uL (4.40-5.90); RED CELL DISTRIBUTION WIDTH 13.5 % (11.5-14.5); WHITE BLOOD COUNT 11.5 K/uL (4.8-10.8)
[2018-03-26 08:34] LABS: ALB/GLOB RATIO 1.1 (1.0-2.1); ALBUMIN 4.4 g/dL (3.5-5.0); ALT/SGPT 44 U/L (21-72); AST/SGOT 35 U/L (17-59); BLOOD UREA NITROGEN 27 mg/dL (9-20); CALCIUM 9.4 mg/dl (8.6-10.4); GFR NON-AFRICAN AMERICAN > 60
[2018-03-26] MEDS: Enoxaparin 40 mg Syringe SC SCH (09:28)
[2018-03-26 16:00] VITALS: PULSE 80; TEMP 97.6; O2SAT 96
[2018-03-26 17:38] VITALS: BP 126/88
--- NOTE | 2018-03-26 19:49 | CP.PCM.DIS ---
Provider - Provider Date of Admission: 03/24/18 13:01 Attending physician: Giovani Brink MD Time Spent in preparation of Discharge (in minutes): 22 Diagnosis - Discharge Diagnosis (1) Cardiac arrhythmia Status: Acute (2) Exacerbation of asthma Status: Acute (3) Degenerative joint disease Status: Acute (4) Viral syndrome Status: Acute Hospital Course - Lab Results Lab Results: Micro Results 03/22/18 19:33 Blood-Venous Blood Culture - Preliminary NO GROWTH AFTER 4 DAYS 03/22/18 19:30 Blood-Venous Blood Culture - Preliminary NO GROWTH AFTER 3 DAYS 03/23/18 16:48 Sputum Gram Stain - Final 03/23/18 16:48 Sputum Sputum Culture - Final NORMAL ORAL STUART 03/22/18 15:50 Urine Urine Culture - Final No Growth (<1,000 CFU/ML) Most Recent Lab Values WBC 11.5 K/uL (4.8-10.8) H 03/26/18 07:42 RBC 4.91 Mil/uL (4.40-5.90) 03/26/18 07:42 Hgb 14.1 g/dL (12.0-18.0) 03/26/18 07:42 Hct 42.1 % (35.0-51.0) 03/26/18 07:42 MCV 85.7 fL (80.0-94.0) 03/26/18 07:42 MCH 28.7 pg (27.0-31.0) 03/26/18 07:42 MCHC 33.5 g/dL (33.0-37.0) 03/26/18 07:42 RDW 13.5 % (11.5-14.5) 03/26/18 07:42 Plt Count 277 K/uL (130-400) 03/26/18 07:42 MPV 8.6 fL (7.2-11.7) 03/26/18 07:42 Neut % (Auto) 71.7 % (50.0-75.0) 03/26/18 07:42 Lymph % (Auto) 22.0 % (20.0-40.0) 03/26/18 07:42 Gilmer % (Auto) 5.1 % (0.0-10.0) 03/26/18 07:42 Eos % (Auto) 0.8 % (0.0-4.0) 03/26/18 07:42 Baso % (Auto) 0.4 % (0.0-2.0) 03/26/18 07:42 Neut # (Auto) 8.3 K/uL (1.8-7.0) H 03/26/18 07:42 Lymph # (Auto) 2.5 K/uL (1.0-4.3) 03/26/18 07:42 Gilmer # (Auto) 0.6 K/uL (0.0-0.8) 03/26/18 07:42 Eos # (Auto) 0.1 K/uL (0.0-0.7) 03/26/18 07:42 Baso # (Auto) 0.0 K/uL (0.0-0.2) 03/26/18 07:42 Neutrophils % (Manual) 95 % (50-75) H 03/22/18 11:11 Lymphocytes % (Manual) 1 % (20-40) L 03/22/18 11:11 Monocytes % (Manual) 4 % (0-10) 03/22/18 11:11 Platelet Estimate Normal (NORMAL) 03/22/18 11:11 RBC Morphology Normal 03/22/18 11:11 PT 13.2 SECONDS (9.7-12.2) H 03/21/18 20:25 INR 1.2 03/21/18 20:25 APTT 31 SECONDS (21-34) 03/21/18 20:25 Puncture Site Rr 03/21/18 20:50 pCO2 38 mm/Hg (35-45) 03/21/18 20:50 pO2 68 mm/Hg (80-100) L 03/21/18 20:50 HCO3 27.3 mmol/L (21-28) 03/21/18 20:50 ABG pH 7.46 (7.35-7.45) H 03/21/18 20:50 ABG Total CO2 28.2 mmol/L (22-28) H 03/21/18 20:50 ABG O2 Saturation 96.5 % (95-98) 03/21/18 20:50 ABG Base Excess 3.1 mmol/L (-2.0-3.0) H 03/21/18 20:50 Felipe Test Yes 03/21/18 20:50 ABG Potassium 3.4 mmol/L (3.6-5.2) L 03/21/18 20:50 A-a O2 Difference 98.0 mm/Hg 03/21/18 20:50 Respiratory Index 1.4 03/21/18 20:50 Sodium 140.0 mmol/l (132-148) 03/21/18 20:50 Chloride 110.0 mmol/L (98-107) H 03/21/18 20:50 Glucose 145 mg/dl (75-110) H 03/21/18 20:50 Lactate 1.4 mmol/L (0.7-2.1) 03/21/18 20:50 FiO2 30.0 % 03/21/18 20:50 Sodium 142 mmol/L (132-148) 03/26/18 07:42 Potassium 4.2 mmol/L (3.6-5.2) 03/26/18 07:42 Chloride 103 mmol/L (98-107) 03/26/18 07:42 Carbon Dioxide 25 mmol/L (22-30) 03/26/18 07:42 Anion Gap 18 (-20) 03/26/18 07:42 BUN 27 mg/dL (9-20) H 03/26/18 07:42 Creatinine 1.1 mg/dL (0.8-1.5) 03/26/18 07:42 Est GFR ( Amer) > 60 03/26/18 07:42 Est GFR (Non-Af Amer) > 60 03/26/18 07:42 POC Glucose (mg/dL) 153 mg/dL (65-110) H 03/26/18 16:17 Random Glucose 114 mg/dL (75-110) H 03/26/18 07:42 Uric Acid 6.3 mg/dL (3.5-8.5) 03/22/18 11:11 Calcium 9.4 mg/dl (8.6-10.4) 03/26/18 07:42 Magnesium 2.1 mg/dL (1.6-2.3) 03/21/18 20:25 Total Bilirubin 0.6 mg/dL (0.2-1.3) 03/26/18 07:42 AST 35 U/L (17-59) 03/26/18 07:42 ALT 44 U/L (21-72) 03/26/18 07:42 Alkaline Phosphatase 68 U/L (38-126) 03/26/18 07:42 Troponin I < 0.0120 ng/mL (0.00-0.120) 03/21/18 20:25 NT-Pro-B Natriuret Pep 13.2 pg/mL (0-900) 03/21/18 20:25 Total Protein 8.2 g/dL (6.3-8.3) 03/26/18 07:42 Albumin 4.4 g/dL (3.5-5.0) 03/26/18 07:42 Globulin 3.8 gm/dL (2.2-3.9) 03/26/18 07:42 Albumin/Globulin Ratio 1.1 (1.0-2.1) 03/26/18 07:42 Arterial Blood Potassium 3.4 mmol/L (3.6-5.2) L 03/21/18 20:50 Urine Color Colorless (YELLOW) 03/21/18 21:50 Urine Clarity Clear (Clear) 03/21/18 21:50 Urine pH 6.0 (5.0-8.0) 03/21/18 21:50 Ur Specific [place] 1.004 (1.003-1.030) 03/21/18 21:50 Urine Protein Negative mg/dL (NEGATIVE) 03/21/18 21:50 Urine Glucose (UA) Normal mg/dL (Normal) 03/21/18 21:50 Urine Ketones Negative mg/dL (NEGATIVE) 03/21/18 21:50 Urine Blood Negative (NEGATIVE) 03/21/18 21:50 Urine Nitrate Negative (NEGATIVE) 03/21/18 21:50 Urine Bilirubin Negative (NEGATIVE) 03/21/18 21:50 Urine Urobilinogen Normal mg/dL (0.2-1.0) 03/21/18 21:50 Ur Leukocyte Esterase Neg Richy/uL (Negative) 03/21/18 21:50 Urine WBC (Auto) < 1 /hpf (0-5) 03/21/18 21:50 Urine RBC (Auto) < 1 /hpf (0-3) 03/21/18 21:50 Influenza Typ A,B (EIA) Negative for flu a/b (NEGATIVE) 03/21/18 20:25 Discharge Exam - Head Exam Head Exam: NORMOCEPHALIC - Eye Exam Pupil Exam: PERRL (patient is legally blind) - ENT Exam ENT Exam: Mucous Membranes Dry - Neck Exam Neck exam: Normal Inspection - Respiratory Exam Respiratory Exam: Wheezes - Cardiovascular Exam Cardiovascular Exam: Irregular Rhythm - GI/Abdominal Exam GI & Abdominal Exam: Normal Bowel Sounds - Rectal Exam Rectal Exam: Deferred - Exam Exam: NORMAL INSPECTION - Extremities Exam Extremities exam: pedal edema - Back Exam Back exam: NORMAL INSPECTION - Neurological Exam Neurological exam: Oriented x3 - Psychiatric Exam Psychiatric exam: Depressed - Skin Skin Exam: Dry Discharge Plan - Discharge Medications Prescriptions: predniSONE [predniSONE Tab] 10 mg PO DAILY #3 tab guaiFENesin/Dextromethorphan [Robitussin DM] 10 ml PO Q8H PRN #8 oz PRN Reason: Cough Montelukast [Singulair] 10 mg PO HS #7 tab Albuterol HFA [Ventolin HFA 90 mcg/actuation (8 g)] 1 puff IH QID PRN #1 inhaler PRN Reason: Wheezing - Follow Up Plan Condition: FAIR Disposition: HOME/ ROUTINE Instructions: Arrhythmias (DC), Asthma, Adult (DC) Additional Instructions: -FOLLOW UP WITH DR. BRINK IN THE OFFICE WITHIN 7 DAYS---CALL THE OFFICE FOR AN APPOINTMENT. -CONTINUE HOME MEDICATIONS USUAL. -YOU HAVE BEEN PRESCRIBED MEDICATIONS FOR YOUR COUGH AND BREATHING; TAKE EXACTLY PRESCRIBED. -FOR FURTHER QUESTIONS OR CONCERNS, CONTACT DR. BRINK'S OFFICE. Referrals: Giovani Brink MD [Staff Provider] - Jerry Arciniega MD [Staff Provider] -
== END 2018-03-26 18:27 | disposition home or self-care (01) | DRG 191 ==
LOC: C.ER 19:14 → C.9E 22:57 → C.5S 03-22 06:32 → OBSVTOIN 03-24 13:01 → C.5S 03-24 20:31
PROVIDERS: ADMIT Internal Medicine; ATTEND Internal Medicine
DX: J44.1 Chronic obstructive pulmonary disease with (acute) exacerbation (principal); J45.901 Unspecified asthma with (acute) exacerbation; I49.9 Cardiac arrhythmia, unspecified; B34.9 Viral infection, unspecified; J02.9 Acute pharyngitis, unspecified; E11.9 Type 2 diabetes mellitus without complications; I11.0 Hypertensive heart disease with heart failure; I25.10 Atherosclerotic heart disease of native coronary artery without angina pectoris; I50.9 Heart failure, unspecified; R06.03 Acute respiratory distress; M19.90 Unspecified osteoarthritis, unspecified site; G47.30 Sleep apnea, unspecified; E78.00 Pure hypercholesterolemia, unspecified; K21.9 Gastro-esophageal reflux disease without esophagitis; H54.8 Legal blindness, as defined in USA; E66.9 Obesity, unspecified; R26.81 Unsteadiness on feet; F32.9 Major depressive disorder, single episode, unspecified; R29.6 Repeated falls; Z68.39 Body mass index [BMI] 39.0-39.9, adult; Z95.5 Presence of coronary angioplasty implant and graft; Z79.82 Long term (current) use of aspirin

== ENCOUNTER 2018-06-11 05:24 | Emergency (ER) | payer MEDICARE, OTHER ==
[2018-06-11 05:24] VITALS: BMI 44.6
[2018-06-11 05:35] VITALS: O2SAT 99
--- NOTE | 2018-06-11 06:18 | C.PDOC ---
History Of Present Illness 57 year old male with PMHx of CAd with stent placement, HTN and vertigo presents to the ED for evaluation of dizziness after waking up this morning. Patient reports he tried to get from his bed and felt like the room was spinning. Daquan hung took his Meclizine at home, later measured his blood pressure which was elevated. Patient tool his Metropolol at 02:00 and still feels the same. Patient denies fever, chills, CP, SOB, palpitations, headache, visual changes, slurred speech, weakness, numbness. Time Seen by Provider: 06/11/18 05:49 Chief Complaint (Nursing): Dizziness/Lightheaded History Per: Patient History/Exam Limitations: no limitations Onset/Duration Of Symptoms: Hrs Current Symptoms Are (Timing): Still Present Activity At Onset Of Symptoms: Lying Associated Symptoms Preceding Syncopal Episode: No Predromal Symptoms (Sudden Onset) Seizure Or Post-ictal Symptoms: None Possible Causative Factor(s): Vertigo Fall Associated With With Symptoms: No Severity: None Recent travel outside of the [place]: No Additional History Per: Patient Past Medical History Reviewed: Historical Data, Nursing Documentation, Vital Signs Vital Signs: Last Vital Signs Temp 97.6 F 06/11/18 05:31 Pulse 74 06/11/18 05:31 Resp 18 06/11/18 05:31 BP 169/101 H 06/11/18 05:31 Pulse Ox 99 06/11/18 05:31 - Medical History PMH: Arthritis, Asthma, CAD, Cardia Arrhythmia, Depression, HTN, Hypercholesterolemia, Migraine, Peripheral Edema, Sleep Apnea Denies: Dementia, Chronic Kidney Disease Surgical History: Coronary Stent (2012 x2) Denies: Pacemaker - [facility] Procedures CORONAR ARTERIOGR-2 CATH (04/16/14) DRESSING TECHNIQUES TREATMENT USING ASSIST EQUIPMENT (07/06/16) EXERCISE TRMT MUSCULOSK LOW BACK/LE W AEROBIC EQUIP (07/06/16) GAIT TRAINING/AMBULAT TREATMENT USING ASSIST EQUIPMENT (07/06/16) GROOMING/PERSONAL HYGIENE TREATMENT USING ASSIST EQUIPMENT (07/06/16) INJECT/INFUSE PLATELET INHIBITOR (12/27/12) INSERTION OF TWO VASCULAR STENTS (12/27/12) INSRT OF DRUG-ELUTING CORON ARTERY STENTS(S) (12/27/12) LEFT HEART CARDIAC CATH (04/16/14) LT HEART ANGIOCARDIOGRAM (04/16/14) OCCUPATIONAL THERAPY (12/30/12) OTH & OPEN REPAIR DIRECT INGUINAL HERNIA W GRAFT OR PROSTH (10/24/13) PERCUTANEOUS TRANSLUMINAL CORONARY ANGIOPLASTY [PTCA] (12/27/12) PHYSICAL THERAPY NEC (12/30/12) PROCEDURE ON SINGLE VESSEL (12/27/12) TRANSFER TRAINING TREATMENT (07/06/16) Family History: States: Unknown Family Hx - Social History Hx Tobacco Use: No Hx Alcohol Use: No Hx Substance Use: No - Immunization History Hx Tetanus Toxoid Vaccination: No Hx Influenza Vaccination: No Hx Pneumococcal Vaccination: No Review Of Systems Constitutional: Negative for: Fever, Chills Eyes: Negative for: Vision Change Cardiovascular: Negative for: Chest Pain, Palpitations Respiratory: Negative for: Shortness of Breath Gastrointestinal: Negative for: Nausea, Vomiting, Abdominal Pain Skin: Negative for: Rash Neurological: Positive for: Dizziness. Negative for: Weakness, Numbness, Headache Physical Exam - Physical Exam Appears: Non-toxic, No Acute Distress, Other (obese) Skin: Normal Color, Warm, Dry Head: Atraumatic, Normacephalic Eye(s): bilateral: Normal Inspection Neck: Normal ROM, Supple Chest: Symmetrical Cardiovascular: Rhythm Regular Respiratory: Normal Breath Sounds, No Rales, No Rhonchi, No Wheezing Gastrointestinal/Abdominal: Soft, No Tenderness, No Guarding, No Rebound Extremity: Normal ROM, No Tenderness, Pedal Edema (bilateral pitting), Capillary Refill (< 2 seconds) Pulses: Left Dorsalis Pedis: Normal, Right Dorsalis Pedis: Normal Neurological/Psych: Oriented x3, Normal Speech, Normal Cognition, Other (reproducible dizziness with change in head position) Gait: Steady ED Course And Treatment - Laboratory Results Result Diagrams: 06/11/18 06:16 06/11/18 06:16 ECG: Interpreted By Me, Viewed By Me ECG Rhythm: Sinus Rhythm Interpretation Of ECG: No acute ST/T changes Rate From EC (BPM) O2 Sat by Pulse Oximetry: 99 (ON RA) Pulse Ox Interpretation: Normal Progress Note: Plan: - EKG. - Labs. - Antivert 25 mg PO. Pt reports improved sx, all labs WNL, in NAD. BP 156/101 no headache, chest pain or SOB, no longer dizzy, neuro intact- pt is advised to increase metoprolol to 50 mg in AM and will follow up with Dr Brink. Pt will take meclzine PO PRN Reevaluation Time: 07:07 Reassessment Condition: Improved Disposition - Disposition Referrals: Giovani Brink MD [Staff Provider] - Disposition Time: 07:11 Condition: STABLE Additional Instructions: Increase PO fluids May increase one dose of metoprolol 2 tabs once in AM and continue regular dose at night Return to ER if worse Instructions: High Blood Pressure (DC) Forms: [employer] (French) - Clinical Impression Clinical Impression: Vertigo - PA / SHRIMPER / Resident Statement MD/DO has reviewed & agrees with the documentation as recorded. - Scribe Statement The provider has reviewed the documentation as recorded by the Scribe Jamaal Hutson All medical record entries made by the Scribe were at my direction and personally dictated by me. I have reviewed the chart and agree that the record accurately reflects my personal performance of the history, physical exam, medical decision making, and the department course for this patient. I have also personally directed, reviewed, and agree with the discharge instructions and disposition.
[2018-06-11 06:20] LABS: BASO % 0.4 % (0.0-2.0); EOS # 0.2 K/uL (0.0-0.7); EOS % 2.4 % (0.0-4.0); HEMOGLOBIN 13.6 g/dL (12.0-18.0); LYMPH # 1.5 K/uL (1.0-4.3); LYMPH % 23.9 % (20.0-40.0); MEAN CELL VOLUME 86.2 fL (80.0-94.0); MEAN CORPUSCULAR HEMOGLOBIN 29.5 pg (27.0-31.0); MEAN CORPUSCULAR HGB CONC 34.2 g/dL (33.0-37.0); MEAN PLATELET VOLUME 8.8 fL (7.2-11.7); MONO # 0.4 K/uL (0.0-0.8); MONO % 6.9 % (0.0-10.0); NEUT # 4.2 K/uL (1.8-7.0); NEUT % 66.4 % (50.0-75.0); RBC 4.62 Mil/uL (4.40-5.90); RED CELL DISTRIBUTION WIDTH 12.9 % (11.5-14.5); WHITE BLOOD COUNT 6.4 K/uL (4.8-10.8)
[2018-06-11 06:33] LABS: ALB/GLOB RATIO 1.3 (1.0-2.1); ALBUMIN 4.3 g/dL (3.5-5.0); ALT/SGPT 51 U/L (21-72); AST/SGOT 37 U/L (17-59); BLOOD UREA NITROGEN 14 mg/dL (9-20); CALCIUM 8.7 mg/dl (8.6-10.4); GFR NON-AFRICAN AMERICAN > 60
[2018-06-11 06:54] VITALS: BP 156/101; PULSE 87; RESP 15; TEMP 98.8
== END 2018-06-11 07:46 | disposition home or self-care (01) ==
LOC: C.ER 05:24
DX: R42 Dizziness and giddiness (principal)

== ENCOUNTER 2018-09-19 16:38 | Observation (INO) | payer MEDICARE ==
[2018-09-19 16:38] VITALS: BMI 44.6
--- NOTE | 2018-09-19 17:17 | C.PDOC ---
History Of Present Illness 57 year old male present to ED with recurrent chest pain since 1500. Patient states that it "felt like the last time I had a heart attack." Patient has a PMHx of CAD s/p two stents in 2012. Patient states that he found relief with NG spray [employer]. Patient is currently asymptomatic. Patient denies other associated symptoms. RECUR CP @ 1500. "FELT LIKE THE LAST TIME I HAD A HEART ATTACK" 2013 S/P STENT X 2. RELIEF W NG SPRAY [employer]. CURRENTLY ASYMPT. DENIES OTHER ASSOC SX EXAM NEG Time Seen by Provider: 09/19/18 16:54 Chief Complaint (Nursing): Chest Pain History Per: Patient History/Exam Limitations: no limitations Onset/Duration Of Symptoms: Hrs (3), Persistent Current Symptoms Are (Timing): Still Present Quality: "Pain" Associated Symptoms: denies: Dyspnea Modifying Factors: None Exacerbating Factors: None Alleviating Factors: None Past Medical History Reviewed: Historical Data, Nursing Documentation, Vital Signs Vital Signs: Last Vital Signs Temp 98.0 F 09/19/18 16:47 Pulse 89 09/19/18 16:47 Resp 20 09/19/18 16:47 BP 115/73 09/19/18 16:47 Pulse Ox 96 09/19/18 16:47 - Medical History PMH: Arthritis, Asthma, CAD, Cardia Arrhythmia, Depression, HTN, Hypercholesterolemia, Migraine, Peripheral Edema, Sleep Apnea Denies: Dementia, Chronic Kidney Disease Surgical History: Coronary Stent (2012 x2) Denies: Pacemaker - [facility] CORONAR ARTERIOGR-2 CATH (04/16/14) DRESSING TECHNIQUES TREATMENT USING ASSIST EQUIPMENT (07/06/16) EXERCISE TRMT MUSCULOSK LOW BACK/LE W AEROBIC EQUIP (07/06/16) GAIT TRAINING/AMBULAT TREATMENT USING ASSIST EQUIPMENT (07/06/16) GROOMING/PERSONAL HYGIENE TREATMENT USING ASSIST EQUIPMENT (07/06/16) INJECT/INFUSE PLATELET INHIBITOR (12/27/12) INSERTION OF TWO VASCULAR STENTS (12/27/12) INSRT OF DRUG-ELUTING CORON ARTERY STENTS(S) (12/27/12) LEFT HEART CARDIAC CATH (04/16/14) LT HEART ANGIOCARDIOGRAM (04/16/14) OCCUPATIONAL THERAPY (12/30/12) OTH & OPEN REPAIR DIRECT INGUINAL HERNIA W GRAFT OR PROSTH (10/24/13) PERCUTANEOUS TRANSLUMINAL CORONARY ANGIOPLASTY [PTCA] (12/27/12) PHYSICAL THERAPY NEC (12/30/12) PROCEDURE ON SINGLE VESSEL (12/27/12) TRANSFER TRAINING TREATMENT (07/06/16) Family History: States: Unknown Family Hx - Social History Hx Tobacco Use: No Hx Alcohol Use: No Hx Substance Use: No - Immunization History Hx Tetanus Toxoid Vaccination: No Hx Influenza Vaccination: No Hx Pneumococcal Vaccination: No Review Of Systems Cardiovascular: Positive for: Chest Pain. Negative for: Palpitations Respiratory: Negative for: Cough, Shortness of Breath, Hemoptysis Gastrointestinal: Negative for: Nausea, Vomiting Physical Exam - Physical Exam Appears: Well, Non-toxic, No Acute Distress Skin: Normal Color, Warm, Dry Head: Atraumatic, Normacephalic Neck: Normal ROM, Supple Chest: Symmetrical, No Deformity Cardiovascular: Rhythm Regular, No Murmur Respiratory: No Accessory Muscle Use, No Rales, No Rhonchi, No Wheezing, Other (NARD) Gastrointestinal/Abdominal: Soft, No Tenderness Extremity: Capillary Refill (<2 seconds) Pulses: Left Radial: Normal, Right Radial: Normal Neurological/Psych: Oriented x3, Normal Speech, Normal Cognition ED Course And Treatment - Laboratory Results Result Diagrams: 09/19/18 17:51 09/19/18 17:51 ECG: Interpreted By Me ECG Rhythm: Sinus Rhythm ECG Interpretation: Normal, No Changes From Prior Rate From EC O2 Sat by Pulse Oximetry: 96 (in RA) Pulse Ox Interpretation: Normal - Other Rad CXR X-Ray: Interpreted by Me, Viewed By Me Interpretation: IMPRESSION: No active disease.No significant interval change compared to the prior examination(s). Concordant results with the preliminary interpretation rendered by the emergency department physician\\PA at the conclusion of the procedure. Progress Note: EKG and CXR ordered for patient. Labs ordered with CMP and CBC. - Physician Consult Information Time Consulting Physician Contacted: 18:30 Physician Contacted: Giovani Brink Outcome Of Conversation: WILL ADMIT Disposition Counseled Patient/Family Regarding: Studies Performed, Diagnosis - Disposition Disposition: HOSPITALIZED Disposition Time: 18:31 Condition: STABLE Forms: [facility] (Telugu) - POA Present On Arrival: None - Clinical Impression Clinical Impression: Chest pain - Scribe Statement The provider has reviewed the documentation as recorded by the Scribe (Melyssa Robertson) All medical record entries made by the Scribe were at my direction and personally dictated by me. I have reviewed the chart and agree that the record accurately reflects my personal performance of the history, physical exam, medical decision making, and the department course for this patient. I have also personally directed, reviewed, and agree with the discharge instructions and disposition.
[2018-09-19 17:55] LABS: BASO # 0.1 K/uL (0.0-0.2); BASO % 0.7 % (0.0-2.0); EOS # 0.2 K/uL (0.0-0.7); EOS % 2.8 % (0.0-4.0); HEMOGLOBIN 13.1 g/dL (12.0-18.0); LYMPH # 1.8 K/uL (1.0-4.3); LYMPH % 24.9 % (20.0-40.0); MEAN CELL VOLUME 86.5 fL (80.0-94.0); MEAN CORPUSCULAR HEMOGLOBIN 29.3 pg (27.0-31.0); MEAN CORPUSCULAR HGB CONC 33.9 g/dL (33.0-37.0); MEAN PLATELET VOLUME 8.2 fL (7.2-11.7); MONO # 0.6 K/uL (0.0-0.8); MONO % 7.8 % (0.0-10.0); NEUT # 4.7 K/uL (1.8-7.0); NEUT % 63.8 % (50.0-75.0); RBC 4.47 Mil/uL (4.40-5.90); RED CELL DISTRIBUTION WIDTH 13.1 % (11.5-14.5); WHITE BLOOD COUNT 7.4 K/uL (4.8-10.8)
--- NOTE | 2018-09-19 17:56 | RAD ---
Date of service: 09/19/2018 PROCEDURE: CHEST RADIOGRAPH, 1 VIEW HISTORY: chest pain COMPARISON: 03/21/2018 FINDINGS: LUNGS: Clear. PLEURA: No pneumothorax or pleural fluid seen. CARDIOVASCULAR: No aortic atherosclerotic calcification present. Normal. OSSEOUS STRUCTURES: No significant abnormalities. VISUALIZED UPPER ABDOMEN: Normal. OTHER FINDINGS: None. IMPRESSION: No active disease.No significant interval change compared to the prior examination(s). Concordant results with the preliminary interpretation rendered by the emergency department physician procedure.
[2018-09-19 18:21] LABS: ALB/GLOB RATIO 1.4 (1.0-2.1); ALBUMIN 4.2 g/dL (3.5-5.0); ALT/SGPT 45 U/L (21-72); AST/SGOT 42 U/L (17-59); BLOOD UREA NITROGEN 18 mg/dL (9-20); CALCIUM 9.3 mg/dl (8.6-10.4); GFR NON-AFRICAN AMERICAN > 60
[2018-09-19] MEDS ORDERED: Albuterol HFA 90 mcg/actuation (8 g) IH PRN (20:24)
[2018-09-19 22:47] LABS: CK-MB 1.44 ng/mL (0.0-3.38)
--- NOTE | 2018-09-19 22:48 | CP.PCM.HP ---
History of Present Illness - History of Present Illness History of Present Illness: patient developed intense chest pain and decided to come to the [facility] emergency room for evaluation. He described the pain as being similar to the chest pain he had in 2013 when he suffered a myocardial infarction. The pain was relieved with nitroglycerin spray. Patient has 2 cardiac stents. Patient was admitted for monitoring and treatment. Present on Admission - Present on Admission Any Indicators Present on Admission: No History of DVT/PE: No History of Uncontrolled Diabetes: No Urinary Catheter: No Decubitus Ulcer Present: No History Surgical Site Infection Following: None Review of Systems - EENT Eyes: Other (patient is legally blind) Nose/Mouth/Throat: Dry Mouth - Cardiovascular Cardiovascular: Chest Pain, Leg Edema - Respiratory Respiratory: Dyspnea - Musculoskeletal Musculoskeletal: Arthralgias - Neurological Neurological: Numbness - Psychiatric Psychiatric: Depression Past Patient History - Infectious Disease Hx of Infectious Diseases: None - Tetanus Immunizations Tetanus Immunization: Unknown, >10 years Ago - Past Medical History & Family History Past Medical History?: Yes - Past Social History Smoking Status: Never Smoked Chewing Tobacco Use: No Cigar Use: No Alcohol: None Drugs: Denies Home Situation {Lives}: Alone - CARDIAC Hx Cardia Arrhythmia: Yes Hx Hypercholesterolemia: Yes Hx Hypertension: Yes Hx Pacemaker: No Hx Peripheral Edema: Yes - PULMONARY Hx Asthma: Yes Hx Sleep Apnea: Yes - NEUROLOGICAL Hx Dementia: No Hx Migraine: Yes - HEENT Hx HEENT Problems: Yes Hx Blind: Yes (legally blind) Hx Cataracts: Yes - RENAL Hx Chronic Kidney Disease: No - ENDOCRINE/METABOLIC Hx Endocrine Disorders: No - HEMATOLOGICAL/ONCOLOGICAL Hx Blood Disorders: No Hx Blood Transfusions: No Hx Blood Transfusion Reaction: No - INTEGUMENTARY Hx Dermatological Problems: No - MUSCULOSKELETAL/RHEUMATOLOGICAL Hx Arthritis: Yes - GASTROINTESTINAL Hx Gastrointestinal Disorders: No Hx Gastroesophageal Reflux: Yes - GENITOURINARY/GYNECOLOGICAL Hx Genitourinary Disorders: No - PSYCHIATRIC Hx Depression: Yes Hx Substance Use: No - SURGICAL HISTORY Hx Coronary Stent: Yes (2012 x2) - ANESTHESIA Hx Anesthesia: Yes Hx Anesthesia Reactions: No Hx Malignant Hyperthermia: No Meds Allergies/Adverse Reactions: Allergies Allergy/AdvReac Type Severity Reaction Status Date / Time No Known Allergies Allergy Verified 09/19/18 16:51 Physical Exam - Constitutional Appears: No Acute Distress - Head Exam Head Exam: NORMOCEPHALIC - ENT Exam ENT Exam: Mucous Membranes Dry - Neck Exam Neck exam: Positive for: Normal Inspection - Respiratory Exam Respiratory Exam: Decreased Breath Sounds - Cardiovascular Exam Cardiovascular Exam: REGULAR RHYTHM - GI/Abdominal Exam GI & Abdominal Exam: Hyperactive Bowel Sounds - Rectal Exam Rectal Exam: Deferred - Exam Exam: NORMAL INSPECTION - Extremities Exam Extremities exam: Positive for: pedal edema - Back Exam Back exam: NORMAL INSPECTION - Neurological Exam Neurological exam: Oriented x3 - Skin Skin Exam: Dry Results - Vital Signs Recent Vital Signs: Last Vital Signs Temp 98.7 F 09/19/18 19:58 Pulse 98 H 09/19/18 19:58 Resp 20 09/19/18 19:58 BP 130/87 09/19/18 19:58 Pulse Ox 97 09/19/18 19:58 - Labs Result Diagrams: 09/19/18 17:51 09/19/18 17:51 Labs: Laboratory Results - last 24 hr 09/19/18 09/19/18 09/19/18 17:51 17:51 22:13 WBC 7.4 RBC 4.47 Hgb 13.1 Hct 38.7 MCV 86.5 MCH 29.3 MCHC 33.9 RDW 13.1 Plt Count 203 MPV 8.2 Neut % (Auto) 63.8 Lymph % (Auto) 24.9 Cedar % (Auto) 7.8 Eos % (Auto) 2.8 Baso % (Auto) 0.7 Neut # (Auto) 4.7 Lymph # (Auto) 1.8 Cedar # (Auto) 0.6 Eos # (Auto) 0.2 Baso # (Auto) 0.1 Sodium 138 Potassium 4.1 Chloride 101 Carbon Dioxide 29 Anion Gap 13 BUN 18 Creatinine 1.1 Est GFR ( Amer) > 60 Est GFR (Non-Af Amer) > 60 Random Glucose 97 D Calcium 9.3 Total Bilirubin 0.4 AST 42 ALT 45 Alkaline Phosphatase 57 Total Creatine Kinase 251 H Troponin I < 0.0120 Total Protein 7.3 Albumin 4.2 Globulin 3.1 Albumin/Globulin Ratio 1.4 Assessment & Plan (1) Legally blind Status: Acute (2) Obesity Status: Acute (3) Chest pain at rest Status: Acute (4) Degenerative joint disease Status: Acute (5) Dizziness Status: Acute (6) Dyspnea Status: Acute
[2018-09-19 23:31] VITALS: O2SAT 95
[2018-09-20 07:43] VITALS: PULSE 84; RESP 20; TEMP 97.3
[2018-09-20 08:18] LABS: CK-MB 1.21 ng/mL (0.0-3.38)
[2018-09-20 09:44] VITALS: BP 130/76
[2018-09-20] MEDS ORDERED: Metoprolol Succinate 12.5 mg XL Tab PO SCH (10:00)
[2018-09-20] MEDS ORDERED: Enoxaparin 40 mg Syringe SC SCH (10:00)
[2018-09-20 14:34] LABS: CK-MB 1.16 ng/mL (0.0-3.38)
--- NOTE | 2018-09-20 20:48 | CARD ---
APPROVED REPORT Date of service: 09/19/2018 EKG Measurement Heart [id number] <Conclusion> Sinus rhythm with 1st degree AV block Possible Left atrial enlargement Borderline ECG
--- NOTE | 2018-09-20 22:22 | CP.PCM.DIS ---
Provider - Provider Date of Admission: 09/19/18 18:31 Attending physician: Giovani Brink MD Time Spent in preparation of Discharge (in minutes): 24 Diagnosis - Discharge Diagnosis (1) Legally blind Status: Acute (2) Obesity Status: Acute (3) Chest pain at rest Status: Acute (4) Degenerative joint disease Status: Acute (5) Dizziness Status: Acute (6) Dyspnea Status: Acute Hospital Course - Lab Results Lab Results: Most Recent Lab Values WBC 7.4 K/uL (4.8-10.8) 09/19/18 17:51 RBC 4.47 Mil/uL (4.40-5.90) 09/19/18 17:51 Hgb 13.1 g/dL (12.0-18.0) 09/19/18 17:51 Hct 38.7 % (35.0-51.0) 09/19/18 17:51 MCV 86.5 fL (80.0-94.0) 09/19/18 17:51 MCH 29.3 pg (27.0-31.0) 09/19/18 17:51 MCHC 33.9 g/dL (33.0-37.0) 09/19/18 17:51 RDW 13.1 % (11.5-14.5) 09/19/18 17:51 Plt Count 203 K/uL (130-400) 09/19/18 17:51 MPV 8.2 fL (7.2-11.7) 09/19/18 17:51 Neut % (Auto) 63.8 % (50.0-75.0) 09/19/18 17:51 Lymph % (Auto) 24.9 % (20.0-40.0) 09/19/18 17:51 Hardin % (Auto) 7.8 % (0.0-10.0) 09/19/18 17:51 Eos % (Auto) 2.8 % (0.0-4.0) 09/19/18 17:51 Baso % (Auto) 0.7 % (0.0-2.0) 09/19/18 17:51 Neut # (Auto) 4.7 K/uL (1.8-7.0) 09/19/18 17:51 Lymph # (Auto) 1.8 K/uL (1.0-4.3) 09/19/18 17:51 Hardin # (Auto) 0.6 K/uL (0.0-0.8) 09/19/18 17:51 Eos # (Auto) 0.2 K/uL (0.0-0.7) 09/19/18 17:51 Baso # (Auto) 0.1 K/uL (0.0-0.2) 09/19/18 17:51 ESR 35 mm/hr (0-15) H 09/20/18 07:48 Sodium 138 mmol/L (132-148) 09/19/18 17:51 Potassium 4.1 mmol/L (3.6-5.2) 09/19/18 17:51 Chloride 101 mmol/L (98-107) 09/19/18 17:51 Carbon Dioxide 29 mmol/L (22-30) 09/19/18 17:51 Anion Gap 13 (10-20) 09/19/18 17:51 BUN 18 mg/dL (9-20) 09/19/18 17:51 Creatinine 1.1 mg/dL (0.8-1.5) 09/19/18 17:51 Est GFR ( Amer) > 60 09/19/18 17:51 Est GFR (Non-Af Amer) > 60 09/19/18 17:51 Random Glucose 97 mg/dL (75-110) D 09/19/18 17:51 Calcium 9.3 mg/dl (8.6-10.4) 09/19/18 17:51 Total Bilirubin 0.4 mg/dL (0.2-1.3) 09/19/18 17:51 AST 42 U/L (17-59) 09/19/18 17:51 ALT 45 U/L (21-72) 09/19/18 17:51 Alkaline Phosphatase 57 U/L (38-126) 09/19/18 17:51 Total Creatine Kinase 228 U/L (55-170) H 09/20/18 14:00 CK-MB (Mass) 1.16 ng/mL (0.0-3.38) 09/20/18 14:00 Troponin I < 0.0120 ng/mL (0.00-0.120) 09/20/18 14:00 C-React Prot High Sens 7.39 mg/L (1.00-3.00) H 09/20/18 07:45 Total Protein 7.3 g/dL (6.3-8.3) 09/19/18 17:51 Albumin 4.2 g/dL (3.5-5.0) 09/19/18 17:51 Globulin 3.1 gm/dL (2.2-3.9) 09/19/18 17:51 Albumin/Globulin Ratio 1.4 (1.0-2.1) 09/19/18 17:51 Procalcitonin < 0.05 NG/ML (0.19-0.49) L 09/20/18 07:45 Discharge Exam - Head Exam Head Exam: NORMOCEPHALIC - Eye Exam Pupil Exam: NORMAL ACCOMODATION - ENT Exam ENT Exam: Normal Exam - Neck Exam Neck exam: Normal Inspection - Respiratory Exam Respiratory Exam: Decreased Breath Sounds - Cardiovascular Exam Cardiovascular Exam: REGULAR RHYTHM - GI/Abdominal Exam GI & Abdominal Exam: Normal Bowel Sounds - Rectal Exam Rectal Exam: Deferred - Extremities Exam Extremities exam: pedal edema - Back Exam Back exam: NORMAL INSPECTION - Neurological Exam Neurological exam: Oriented x3 - Psychiatric Exam Psychiatric exam: Depressed - Skin Skin Exam: Dry Discharge Plan - Discharge Medications Prescriptions: Furosemide [Lasix] 40 mg PO DAILY #30 tab Metoprolol Succinate XL [Toprol XL] 12.5 mg PO DAILY #30 tab - Follow Up Plan Condition: STABLE Disposition: HOME/ ROUTINE Instructions: Chest Pain (DC), Furosemide, Metoprolol, Hypertension (DC), Hypertension (GEN) Additional Instructions: CONTINUE WITH PRESENT MEDICATIONS FOLLOW UP WITH PRIMARY MEDICAL DOCTOR IN 1 WEEK Referrals: Giovani Brink MD [Staff Provider] -
[2018-09-21] MEDS ORDERED: Pneumococcal 23-Valent Vaccine IM ONE (10:00)
--- NOTE | 2018-09-22 14:06 | CARD ---
APPROVED REPORT Date of service: 09/20/2018 EKG Measurement Heart [id number] <Conclusion> Normal sinus rhythm Septal infarct, age undetermined Abnormal ECG
--- NOTE | 2018-09-22 14:12 | CARD ---
APPROVED REPORT Date of service: 09/20/2018 EKG Measurement Heart [id number] <Conclusion> Normal sinus rhythm Cannot rule out Anterior infarct, age undetermined Abnormal ECG
== END 2018-09-20 15:35 | disposition home or self-care (01) ==
LOC: C.ER 16:38 → C.9E 18:31 → C.5S 19:23
PROVIDERS: ADMIT Internal Medicine; ATTEND Internal Medicine
DX: R07.89 Other chest pain (principal); E66.9 Obesity, unspecified; G47.30 Sleep apnea, unspecified; H54.8 Legal blindness, as defined in USA; I10 Essential (primary) hypertension; I25.10 Atherosclerotic heart disease of native coronary artery without angina pectoris; I25.2 Old myocardial infarction; Z95.5 Presence of coronary angioplasty implant and graft; Z68.41 Body mass index [BMI] 40.0-44.9, adult
CPT/HCPCS: 36415; 71045; 80053; 84145; 84484; 85025; 85651; 86140; 93005; 96372; 99285; G0378; J1650